=== PATIENT | male | born 1995 | race African-American/Black ===

== ENCOUNTER 2017-06-10 21:57 | Emergency (ER) | payer BC ==
[~2017-06-10] VITALS: Ht 182.9 cm; Wt 113.4 kg
[2017-06-11 01:55] VITALS: BP 148/84
[2017-06-11] MEDS ORDERED: TETANUS-DIPTH-ACEL PERTUSSIS 0.5ML SYRG IM ONE (02:15)
== END 2017-06-11 02:26 | disposition home or self-care (01) ==
LOC: ER 21:57
DX: S81.001A Unspecified open wound, right knee, initial encounter (principal); X58.XXXA Exposure to other specified factors, initial encounter; Y93.89 Activity, other specified; Y92.89 Other specified places as the place of occurrence of the external cause; Y99.8 Other external cause status
CPT/HCPCS: 90471; 90715

== ENCOUNTER 2017-06-22 20:31 | Emergency (ER) | payer BC ==
[~2017-06-22] VITALS: Ht 182.9 cm; Wt 108.9 kg
[2017-06-22 20:40] VITALS: BP 135/87
[2017-06-23] MEDS ORDERED: DERMOPLAST 60ML BOTTLE TOP ONE (00:36)
== END 2017-06-23 03:50 | disposition home or self-care (01) ==
LOC: ER 20:31
DX: S81.001A Unspecified open wound, right knee, initial encounter (principal); X58.XXXA Exposure to other specified factors, initial encounter; Y93.89 Activity, other specified; Y99.8 Other external cause status; Y92.89 Other specified places as the place of occurrence of the external cause
CPT/HCPCS: 73560